=== PATIENT | female | born 1975 | race Caucasian/White ===

== ENCOUNTER → 2018-03-03 | Outpatient (CLI) | payer BC ==
[~2018-03-03] MED LIST: CHOL200024 PO; CYAN1TAB29 PO; CYCL5TAB PO; DEXT5TAB17 PO; DIAZ2TAB PO; FEXO180T72 PO; FLAX100029 PO; FLUO20DR3 EACH EAR; GABAPENTIN PO; LAMO200T3 PO; LEVO5TAB29 PO; LIOT5TAB3 PO; MAGNESIUM PO; MODA100T2 PO; MOME17SP NS; NAPR-856 PO; OMEG1CAP23 PO; POTASSIUM PO; VITA1CAP PO; WELLBUTRIN PO; [UNRECOGNIZED DRUG - OTHER] PO; armour thyroid PO; magnesium PO
== END | disposition home or self-care (01) ==
LOC: STAR 13:15
PROVIDERS: ATTEND Orthopaedic Surgery
DX: Z02.9 Encounter for administrative examinations, unspecified (principal)